=== PATIENT | male | born 1975 | race Caucasian/White ===

== ENCOUNTER 2017-08-22 07:46 | Emergency (ER) | payer OTHER ==
[~2017-08-22] VITALS: Ht 182.9 cm; Wt 77.1 kg
[2017-08-22 07:54] VITALS: BP 157/103
== END 2017-08-22 08:18 | disposition home or self-care (01) ==
LOC: M.ERS 07:46
DX: M54.9 Dorsalgia, unspecified (principal); F17.210 Nicotine dependence, cigarettes, uncomplicated